=== PATIENT | male | born 1955 | race Caucasian/White ===

== ENCOUNTER 2019-07-18 06:30 | Inpatient (IN) ==
--- NOTE | 2019-05-21 13:00 | PAT Medication Instructions ---
Medication Instructions Date of Service May 21, 2019 Home Medications albuterol sulfate 1 puff INHALATION Q6H PRN amlodipine 10 mg PO QAM apple cider vinegar 500 mg PO QAM aspirin [Aspirin Low Dose] 81 mg PO DAILY atenolol 100 mg PO QAM biotin 10,000 mcg PO QAM cyanocobalamin (vitamin B-12) [Vitamin B-12] 1,000 mcg PO QAM ezetimibe [Zetia] 10 mg PO QAM hydrochlorothiazide 25 mg PO QAM hydroxyzine HCl 75 mg PO HS lorazepam 1 mg PO HS losartan 100 mg PO QAM meclizine 25 mg PO BID PRN metformin 850 mg PO BID potassium 99 mg PO DAILY STOP taking 2 weeks before surgery (or as soon as possible if surgery is within 2 weeks) apple cider vinegar 500 mg PO QAM biotin 10,000 mcg PO QAM DO NOT take the morning of surgery cyanocobalamin (vitamin B-12) [Vitamin B-12] 1,000 mcg PO QAM hydrochlorothiazide 25 mg PO QAM losartan 100 mg PO QAM metformin 850 mg PO BID potassium 99 mg PO DAILY Take morning of surgery With a small sip of water, OTHERWISE NOTHING TO EAT OR DRINK AFTER MIDNIGHT: albuterol sulfate 1 puff INHALATION Q6H PRN (use if needed; please bring with you to hospital day of surgery if possible) amlodipine 10 mg PO QAM aspirin [Aspirin Low Dose] 81 mg PO DAILY atenolol 100 mg PO QAM ezetimibe [Zetia] 10 mg PO QAM meclizine 25 mg PO BID PRN (if needed) Take evening before surgery albuterol sulfate 1 puff INHALATION Q6H PRN (if needed) hydroxyzine HCl 75 mg PO HS lorazepam 1 mg PO HS meclizine 25 mg PO BID PRN (if needed) metformin 850 mg PO BID Other Notes If you have any questions please call us at [phone] or [phone] or [phone] or [phone]
--- NOTE | 2019-05-22 12:45 | Anesthesiology Consultation ---
Date of Service May 22, 2019 Assessment & Plan (1) Encounter for pre-operative examination: - Check BSG AM DOS Chart Review Chart Review: Pending: Refer to Additional Notes / Consult section (pending preop testing (labs, EKG, CXR)) and Patient seen in Pre Admission Testing Teaching & Discussion Pre-Anesthesia Teaching/Discussion Notes: Instructed NPO after midnight before surgery,except medications with 15 cc of water. Medication instructions provided according to the PAT guidelines. History Surgery Operation Date: 07/18/19 10:55 Proposed Procedures p Left Total Knee Arthroplasty - Charles Diaz MD Height/Weight Height: 6 ft Weight: 133.3 kg Allergies Allergy/AdvReac Type Severity Reaction Status Date / Time oxycodone Allergy Unknown hives & sob Verified 05/20/19 10:09 hay fever Allergy Severe eye swell Uncoded 05/20/19 10:09 shut Medications Home Medications Medication Instructions Recorded Confirmed Last Taken albuterol sulfate 1 puff INHALATION Q6H PRN 05/20/19 05/20/19 Unknown amlodipine 10 mg PO QAM 05/20/19 05/20/19 Unknown apple cider vinegar 500 mg PO QAM 05/20/19 05/20/19 Unknown aspirin [Aspirin Low Dose] 81 mg PO DAILY 05/20/19 05/20/19 Unknown atenolol 100 mg PO QAM 05/20/19 05/20/19 Unknown biotin 10,000 mcg PO QAM 05/20/19 05/20/19 Unknown cyanocobalamin (vitamin B-12) 1,000 mcg PO QAM 05/20/19 05/20/19 Unknown [Vitamin B-12] ezetimibe [Zetia] 10 mg PO QAM 05/20/19 05/20/19 Unknown hydrochlorothiazide 25 mg PO QAM 05/20/19 05/20/19 Unknown hydroxyzine HCl 75 mg PO HS 05/20/19 05/20/19 Unknown lorazepam 1 mg PO HS 05/20/19 05/20/19 Unknown losartan 100 mg PO QAM 05/20/19 05/20/19 Unknown meclizine 25 mg PO BID PRN 05/20/19 05/20/19 Unknown metformin 850 mg PO BID 05/20/19 05/20/19 Unknown potassium 99 mg PO DAILY 05/20/19 05/20/19 Unknown meloxicam 15 mg PO DAILY 05/22/19 05/22/19 Unknown Past Medical History Medical History Asthma exercise induced; no recent inhaler Diabetes mellitus, type 2 NIDDM History of tooth extraction Hyperlipidemia Hypertension Obesity Sleep apnea CPAP Exercise / Class Metabolic Activity III < 4 Walking/Shop/Light housework (uses cane/walker PRN) Past Family History Family History Father Family history of diabetes mellitus Mother Family history of diabetes mellitus Sister Family history of diabetes mellitus Past Surgical History Surgical History H/O elbow surgery right 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 Physical Exam Vital Signs VITALS BP 145/78 P 59 TEMP 98.1 SP02 95%RA RESP 18 PHYSICAL Full neck and c-spine range of motion. Full TMJ range of motion. TMD 3 finger breaths Mallampati Score 2 Dentition: full upper plate; several missing lower (does not have partial yet) Lungs: clear throughout to auscultation Cardiac: regular rate and rhythm, no murmurs noted Spine: normal Carotid arteries: negative bruit Extremities: no edema
--- NOTE | 2019-05-22 13:16 | XRay Report ---
XR chest Pre-admission PA/Lat CLINICAL HISTORY: Preoperative chest COMPARISON STUDY: No previous studies for comparison. FINDINGS: The cardiac and mediastinal contours are normal. There is no evidence of focal pulmonary co nsolidation. There is no evidence of failure. No pleural effusions are visualized.[ IMPRESSION: No active disease in the chest. Electronically signed by: Lane Caceres M.D. 05/22/2019 1:15 PM
[2019-05-22 14:56] LABS: Basophils # (auto) 0.04 K/uL (0-0.2); Basophils % (auto) 0.4 %; Eosinophils # (auto) 0.28 K/uL (0-0.5); Eosinophils % (auto) 2.9 %; Hematocrit (blood only) 42.6 % (42-52); Immature Granulocytes # (auto) 0.08 K/uL (0.00-0.02); Immature Granulocytes % (auto) 0.8 %; Lymphocytes % (auto) 26.9 %; Mean Corpuscular Hemoglobin 28.9 pg (25-34); Mean Corpuscular Hgb Conc 32.9 g/dL (32-36); Mean Corpuscular Volume 87.8 fL (80-100); Mean Platelet Volume 10.7 fL (7.4-10.4); Monocytes # (auto) 0.95 K/uL (0.11-0.59); Monocytes % (auto) 9.8 %; Neutrophils # (auto) 5.71 K/uL (1.4-6.5); Neutrophils % (auto) 59.2 %; Platelet Count 327 K/uL (130-400); RDW Coefficient of Variation 13.9 % (11.5-14.5); RDW Standard Deviation 44.6 fL (36.4-46.3); Red Blood Count 4.85 M/uL (4.7-6.1); White Blood Count 9.66 K/uL (4.8-10.8)
[2019-05-22 15:10] LABS: Partial Thromboplastin Ratio 1.1; Partial Thromboplastin Time 28.9 Seconds (21.0-31.0); Prothrombin Time 10.3 Seconds (9.0-12.0)
[2019-05-22 15:20] LABS: BUN Creatinine Ratio 14.7 (10-20); Calcium 9.2 mg/dl (8.5-10.1); Creatinine Clr Calc Pharmacy 94.5 ml/min; Est GFR (African American) 79.7; Est GFR (Non-African American) 68.8; Potassium 4.4 mmol/L (3.5-5.1)
[2019-05-23 05:46] LABS: Estimated Average Glucose 137 mg/dl; Hemoglobin A1C 6.4 % (4.5-5.6)
--- NOTE | 2019-07-11 13:27 | History and Physical Report ---
DATE OF ADMISSION: 07/18/2019 CHIEF COMPLAINT: Left knee pain, discomfort, catching and locking and instability. HISTORY OF PRESENT ILLNESS: This is a 64-year-old gentleman who presents on referral from my partner Dr. Chaudhari for surgical treatment of his left knee. He has got a long history of left knee pain and discomfort, describes it has gotten worse over time. He has got pain in both knees, but the left side a bit worse than the right. He describes catching and locking to the point where it gives way intermittently. He gets acute episodes of pain. He has had injections which provided some temporary relief only. He uses a cane to get around as a result. He has got global pain. He has nighttime discomfort. He would like to have his left knee fixed. PAST MEDICAL HISTORY: Significant for: 1. Hypertension. 2. Sleep apnea with CPAP machine. 3. Diabetes. 4. Arthritis. 5. Low back pain/sciatica. PAST SURGICAL HISTORY: 1. Right elbow surgery. 2. Plantar fascia surgery. ALLERGIES: HAY FEVER. CURRENT MEDICINES: Include: 1. Metformin. 2. Amlodipine. 3. Atenolol. 4. Losartan. 5. Lorazepam. 6. Adderall. 7. Potassium. 8. Biotin. 9. Apple cider vinegar. 10. B12. 11. Aspirin. SOCIAL HISTORY: A 64-year-old male. He is . Lives in [place]. No significant smoking or alcohol intake. FAMILY HISTORY: Noncontributory. REVIEW OF SYSTEMS: Negative for DVT or PE. He is diabetic. He states his blood glucose under good control. No chest pain or shortness of breath. No DVT. No bleeding problems. PHYSICAL EXAMINATION: GENERAL: Shows a fairly large middle-aged male. Looks to be in reasonably good health. HEENT: Benign. NECK: Supple, no lymphadenopathy. LUNGS: Clear to auscultation. HEART: Regular rate and rhythm. ABDOMEN: Soft, nontender, nondistended. EXTREMITIES: Grossly neurovascularly intact except as follows. Examination of left knee reveals patient walks with use of a cane. He has got slight varus alignment to his knee. He has got small knee effusion. Range of motion is about 5-125. He has no pain with hip motion. He is neurologically intact. X-RAYS: X-rays of the left knee reviewed. Shows advanced left knee tricompartment DJD. He has got essentially complete loss of his medial joint space. He has got a small loose body posteriorly and 1 in the intercondylar notch area as well. Subchondral sclerosis. ASSESSMENT: A 64-year-old male with left knee degenerative joint disease and several loose bodies in his knee. He has failed conservative treatment and would like to have his left knee replaced. PLAN: We are going to take him to the operating room and do a left total knee replacement. The risks and benefits of this procedure were explained to the patient including but not limited to DVT, PE, , infection, neurological injury, vascular injury, bleeding problem, pain, limited range of motion, stiffness, failure to relieve symptoms, incomplete relief of symptoms, need for further surgery in future, etc. The patient understands and desires to proceed. We did talk to him about holding his metformin in the morning of surgery and taking atenolol. He will bring his CPAP machine to the hospital. He is planning to be discharged to home. His daughter is a physical therapist and is going to work with him therapy adams.
[~2019-07-18 06:30] MED LIST: ACETAMINOPHEN 500 MG TAB PO SCH; BUPIVACAINE LIPOSOME/PF 266 MG, BUPIVACAINE/EPINEPHRINE 50 ML, SODIUM CHLORIDE 0.9% 30 ... INFIL SCH; CEFAZOLIN 3000MG 72.5 ML IV SCH; FAMOTIDINE 20 MG TAB PO SCH; GABAPENTIN 600 MG DOSE PO SCH; LR 500ML BOLUS, THEN 15ML/HR IV SCH; LR 60ML/HR IV SCH; METOCLOPRAMIDE HCL 10 MG TABLET PO SCH; SCOPOLAMINE 1.5 MG TDSY TD SCH; TRANEXAMIC ACID 1,000 MG **IV Intra-op IV SCH
[2019-07-18] MEDS ORDERED: ROPIVACAINE 0.5% 5 MG/ML 30 ML VIAL ONE (06:31)
[2019-07-18] MEDS ORDERED: BUPIVACAINE 0.5 % 5 MG/1 ML PF 10ML VIAL ONE (06:31)
--- NOTE | 2019-07-18 06:57 | History & Physical Bridge Note ---
Date of Service July 18, 2019 History & Physical Bridge Note I have examined the patient, reviewed the History & Physical and in the interval since the performance of the History & Physical I have noted the following changes of clinical significance: Patient with BILATERAL knee DJD. Will do Left TKR and inject right knee under anesthesia at patient's request.
[2019-07-18] MEDS ORDERED: MIDAZOLAM HCL 1 MG/ML 2ML VIAL ONE (10:55)
[2019-07-18] MEDS ORDERED: fentaNYL citrate 100 MCG/2 ML VIAL ONE (10:57)
[2019-07-18] MEDS ORDERED: KETOROLAC 30 MG/ML VIAL IV PRN (11:20)
[2019-07-18] MEDS ORDERED: HYDROmorphone INJ 1 MG/ML SYRINGE IV PRN (11:20)
[2019-07-18] MEDS ORDERED: ONDANSETRON INJ 2 MG/ML 2 ML VIAL IV PRN ×2 (11:20→14:55)
[2019-07-18] MEDS ORDERED: ePHEDrine sulfate 50 MG/ML AMP IV PRN (11:20)
[2019-07-18] MEDS ORDERED: ATROPINE SULFATE 0.1 MG/ML 10ML SYR IV PRN (11:20)
[2019-07-18] MEDS ORDERED: ONDANSETRON INJ 2 MG/ML 2 ML VIAL ONE (11:39)
[2019-07-18] MEDS ORDERED: LIDOCAINE HCL 2% 2 ML VIAL/AMP(20MG/ML) INFIL ONE (11:39)
[2019-07-18] MEDS ORDERED: PROPOFOL IV EMULSION 10 MG/ML 20 ML VIAL IV ONE (11:39)
[2019-07-18] MEDS ORDERED: SODIUM CHLORIDE 0.9% PF 50 ML VIAL ONE (11:41)
[2019-07-18] MEDS ORDERED: BUPIVACAINE/EPINEPHRINE 0.25% 1:200,000 30 ML VIAL ONE (11:41)
[2019-07-18] MEDS ORDERED: BUPIVACAINE 0.5 % 5 MG/1 ML MPF 30ML VIAL ONE (11:42)
[2019-07-18] MEDS ORDERED: BUPIVACAINE LIPOSOME 1.3% 266 MG/20 ML VIAL ONE (11:42)
[2019-07-18] MEDS ORDERED: BACITRACIN INJ 50,000 UNIT VIAL ONE (11:42)
[2019-07-18] MEDS ORDERED: BETAMETH SOD PHOS/ACETATE IA 6 MG/ML IA ONE (12:00)
--- NOTE | 2019-07-18 13:57 | Post Operative Brief Note ---
PG Immediate Post Op with CF Date of Surgery July 18, 2019 Pre & Post Diagnosis Operation Date: 07/18/19 08:50 Pre-Op Diagnosis: Bilateral Knee Degenerative Joint Disease Post-Op Diagnosis: Bilateral Knee Degenerative Joint Disease I identified the patient and participated in the time-out.: Yes Procedure Operation Date: 07/18/19 08:50 Actual Procedures p Left Total Knee Arthroplasty, Right Knee Injection(Left) - Charles Diaz MD Surgeon Charles Diaz MD Senior Product Development Engineer Jorge, PAC Estimated Blood Loss 50 Findings Consistent with Post-Op Diagnosis Fluids 1800 cc Specimens Specimen Description: Permanent Specimens: A) Left Knee Bone and Tissue Drains Choi Catheter Anesthesia Type Spinal MAC Complications none Disposition Accompanied Patient To Recovery: No Disposition: Recovery Room
--- NOTE | 2019-07-18 14:14 | Operative Report ---
Post Operative Report Pre & Post Diagnosis Operation Date: 07/18/19 08:50 Pre-Op Diagnosis: Bilateral Knee Degenerative Joint Disease Post-Op Diagnosis: Bilateral Knee Degenerative Joint Disease I identified the patient and participated in the time-out.: Yes Procedure Operation Date: 07/18/19 08:50 Actual Procedures p Left Total Knee Arthroplasty, Right Knee Injection(Left) - Cahrles Diaz MD Surgeon Charles Diaz MD Post Partum Nurse Jorge, PAC Estimated Blood Loss 50 Findings Consistent with Post-Op Diagnosis Operative findings revealed advanced left knee DJD with grade 4 [id number] disease of the medial and patellofemoral compartments. He had a varus deformity to his knee with osteophytes in the medial compartment. Moderate sized joint effusion. Fluids 1800 cc Specimens Left knee sent for pathology. Drains None. Anesthesia Type Spinal MAC Complications none Disposition Accompanied Patient To Recovery: No Disposition: Recovery Room Indications Patient is a 64-year-old gentleman with a long history of bilateral knee pain and discomfort the describes gotten worse over time please been followed by my partner Dr. Chaudhari. He failed conservative care. X-rays reveal advanced medial compartment arthritis. Elected to proceed with a left total knee arthroplasty. He has known arthritis in his right knee as well and elected to proceed with a right knee injection while under anesthesia. Description of Procedure Operative implants consisted of: 1. A Biomet Vanguard size 70 left posterior bifemoral component. 2. Biomet Vanguard size 75 tibial tray. 3. 10 mm posterior stabilized polyethylene insert. 4. 31 x 8 all poly-patella. Patient taken to the operating identified and placed on the operating room table in the supine position. All contact areas were appropriately padded. IV antibiotics were provided by anesthesia team. Spinal anesthetic and abductor canal block is provided in the holding area. Choi catheter was placed in a sterile fashion with left thigh tourniquet was then placed in the left lower extremity was then prepped and draped in usual sterile fashion. The left leg was elevated and exsanguinated with use of an Esmarch interspace at 3 mmHg. An anterior approach to the left knee was then performed the longitudinal incision centered over the patella. Sharp passes cut through subcutaneous tissue down to the extensor mechanism. A medial parapatellar arthrotomy incision was made. Some subperiosteal dissection was carried out medially. The fat pad was resected from beneath patella tendon. Lateral patellofemoral ligament was released. Patella was subluxated laterally and the knee was flexed. The osteophytes taken off the distal femur. The ACL and PCL were then released from the distal femur the tibia subluxated anteriorly. The external tibial alignment jig was then placed in the interface the tibia and adjusted 14 mm medially. Proximal tibial cut was made to remove about a millimeter bone from the most efficient aspect and posterior medial tibial plateau. The tibia was sized to size 75. Attention drawn the femur. New per the disc femur there was a sharp drill. Intramedullary canal was suction. A left 6 degree valgus cutting guide was placed but this femoral cutting block was pinned in place but this femoral cut was made to take an additional 3 mm of bone off the distal femur. Femur was then sized to a size 70. We downsized this slightly. The AP cutting block was pinned parallel to the epicondylar axis which was 4 degrees of external rotation. The anterior cut, anterior chamfer, posterior cut, posterior chamfer cuts were made. Box cutting guide was placed and just slightly lateral and the box cut was made. The knee was flexed with the remnants of the medial lateral menisci were excised. The osteophytes taken off the posterior aspect of the femur. Trial femoral component was placed. The tibial tray was pinned in maximum external rotation and drill and stem punch were used to create defect in the proximal tip for the tibial tray. Knee was then trialed and the 10 mm insert fit most appropriately. Attention drawn the patella. Patella was cleaned of all soft tissues. Patella thickness measured 23 mm in thickness was cut down to 14. Size a size 31 patella. Locals were drilled for 31 patella. The lateral osteophyte was removed. Patella button was placed. Knee was taken through range of motion patella tracked nicely with no thumbs test. Attention was then drawn to place the permanent components. All trial implants were removed. Bone plug was placed in the disc femur limit blood loss put a double batch of Palacos G cement was mixed. Biomet Vanguard size 70 left posterior bifemoral component, size 75 tibial tray, 10 mm posterior bite polyethylene insert, and a 31 x 8 all poly-patella then cement placed. Knee was brought out into full extension until cement hardened. Final cement check was then performed. The pericapsular tissues were injected with total of 100 cc of combination of 20 cc of Exparel, 30 cc normal saline, 50 cc of quarter percent Marcaine with epinephrine. Patient did receive 1 g of tranexamic acid. The tourniquet was then let down for final tourniquet time 65 minutes. Hemostasis should use electrocautery. Wounds once again irrigated. Extensor macros then closed with combination 1 PDS suture #1 Vicryl suture in [id number] fashion for extensor mechanism checked found to be intact the subtenons tissue then closed with 2 Dexon suture in a buried knot fashion skin was closed skin mora. Leg was then cleaned dried a sterile dressing was Xeroform for 4 sterile cast padding Romulo bandage were applied. Patient tolerated procedure well and no complications. The right knee was then prepped with alcohol. 2 cc Celestone and 8 cc Marcaine were injected in the right knee in a sterile fashion. A box of 4 x 4's was then placed over the incision site and the GALE stockings were placed to secure the bandage. I attest to the content of the Intraoperative Record and any orders documented therein. Any exceptions are noted below.
--- NOTE | 2019-07-18 14:26 | Anesthesiology Progress Note ---
Date of Service July 18, 2019 Anesthesia Post Procedure Vital Signs Vital Signs: Temp Pulse Pulse Resp BP BP Pulse Ox 07/18/19 14:20 58 L 16 135/61 96 07/18/19 14:10 69 16 127/61 94 07/18/19 14:01 37.3 C 66 16 126/63 97 07/18/19 07:02 36.8 C 61 18 122/73 95 Pain Intensity Left Knee: Pain Intensity: 1 Transfer of Care Handoff Completed per policy Notes Mental Status: alert / awake / arousable Patient Amnestic to Procedure: Yes Nausea / Vomiting: adequately controlled Pain: adequately controlled Airway Patency, RR, SpO2: stable & adequate BP & HR: stable & adequate Hydration State: stable & adequate Anesthetic Complications: no major complications apparent
--- NOTE | 2019-07-18 14:39 | XRay Report ---
XR knee LT 1 or 2V routine CLINICAL HISTORY: Surgical Post Op COMPARISON: None. DISCUSSION: Anatomic alignment posttotal left knee arthroplasty. Could contact between prosthetic and underlying bone. Expected postoperative soft tissue change IMPRESSION: Anatomic alignment posttotal left knee arthroplasty. The above report was generated using voice recognition software. It may contain grammatical, syntax or spelling errors. Electronically signed by: Shashank Johnson M.D. 07/18/2019 2:38 PM
[2019-07-18] MEDS ORDERED: CARBOHYDRATES FOR HYPOGLYCEMIA PO PRN (14:55)
[2019-07-18] MEDS ORDERED: GLUCOSE 40% GEL 15 GM TUBE PO PRN (14:55)
[2019-07-18] MEDS ORDERED: SODIUM CHLORIDE 0.9% 1000ML 1,000 ML IV SCH (14:55)
[2019-07-18] MEDS ORDERED: DEXTROSE 50% 50 ML SYRINGE IV PRN (14:55)
[2019-07-18] MEDS ORDERED: NALOXONE HCL 0.4 MG/1 ML VIAL/CARP IV PRN (14:55)
[2019-07-18] MEDS ORDERED: TAMSULOSIN HCL 0.4 MG CAP PO PRN (14:55)
[2019-07-18] MEDS ORDERED: GLUCAGON FOR INJ 1 MG VIAL SQ PRN (14:55)
[2019-07-18] MEDS ORDERED: HYDROmorphone INJ 0.5 MG/0.5 ML SYR IV PRN (14:55)
[2019-07-18] MEDS ORDERED: bisacodyL 10 MG SUPP PR PRN (14:55)
[2019-07-18] MEDS ORDERED: ALBUTEROL HFA 8 GM INHALER INH PRN (14:55)
[2019-07-18] MEDS ORDERED: ALUMINUM/MAGNESIUM SUSP 30 ML UDC PO PRN (14:55)
[2019-07-18] MEDS ORDERED: METOCLOPRAMIDE HCL INJ 5 MG/ML 2 ML VIAL IV PRN (14:55)
[2019-07-18] MEDS ORDERED: MAGNESIUM HYDROXIDE SUSP 30 ML UDC PO PRN (14:55)
[2019-07-18] MEDS ORDERED: GLUCOSE 10 TABS/TUBE PO PRN (14:55)
[2019-07-18] MEDS ORDERED: PHARMACY GLYCEMIC MGMT CONSULT PRN (15:16)
[2019-07-18] MEDS ORDERED: MECLIZINE HCL 25 MG TAB PO PRN (15:59)
--- NOTE | 2019-07-18 16:03 | Pharmacy Report ---
Glycemic Control Consultation - Date of Service July 18, 2019 - Scope Scope: Glycemic Pharmacist consulted by Dr Diaz on 07/18/19 for glycemic control and to write orders per [facility] inpatient glycemic control protocol - Objective Weight: 136.1 kg Accuchecks BSG (last 24hrs): 07/18/19 07/18/19 06:53 14:07 POC Glucose 125 H 106 H HbA1c: Hemoglobin A1c 6.4 % (4.5-5.6) H 05/22/19 12:55 - Recent Pertinent Medications Outpatient Anti-diabetic Regimen: * Metformin * A1c = 6.4 % 05/22/19 - Assessment & Plan Assessment & Plan: ASSESSMENT: * Pt is a 64yo M type II diabetic. POD: 0 for L TKA. He is maintained on metformin 850mg BID as an outpt. His A1C of 6.4% is indicative of excellent outpt management. PMHx consistent with HTN, LULA, OA, obesity. PLAN FOR INPATIENT GLYCEMIC CONTROL: * Holding outpatient oral diabetes medications * Basal insulin * Lantus scale X1 @ HS * BSGs <180 hold lantus * BSGs >/=180 give 20 units * Bolus insulin * NovoLog per scale ACHS or Q6hrs while NPO * Goal Range: Low 110 mg/dL - High 140 mg/dL * Correction Factor: 15 mg/dL/unit * Nutritional / Prandial insulin per carb ratio of 1 unit per 6 grams CHO consumed * Please note that the plan above was derived based on current level of insulin resistance and hospital stress. These recommendations are appropriate for inpatient admission only. Plan of care upon discharge will need to be reassessed to avoid potential outpatient hypo/hyperglycemia. Thank you.
[2019-07-18] MEDS: ACETAMINOPHEN 500 MG TAB PO SCH ×2 (16:39→22:12)
[2019-07-18] MEDS: KETOROLAC TROMETHAMINE 15 MG/ML VIAL IV SCH ×2 (16:39→20:45)
[2019-07-18] MEDS: CHECK SCOPOLAMINE PATCH PLACEMENT SCH ×2 (16:39→23:49)
--- NOTE | 2019-07-18 17:06 | Progress Note ---
DATE: 07/18/2019 SUBJECTIVE: A 64-year-old male diabetic, postop from a left knee replacement and a right knee injection. He is doing pretty well. Minimal pain. Just getting the feeling back in his legs. No chest pain or shortness of breath. Not feeling dizzy. He says he feels great. OBJECTIVE: VITAL SIGNS: Temperature 36.5. Vital signs stable. GENERAL: Pleasant elderly male. He is sitting up in bed and talking to his family. LUNGS: Clear to auscultation. HEART: Regular rate and rhythm. ABDOMEN: Soft, nontender, nondistended. EXTREMITIES: Grossly neurovascularly intact except as follows. Examination of the left lower extremity reveals the leg to be well aligned. Dressing is clean, dry and intact. He is just starting to be able to move his toes. He has got brisk refill. Sensation is just returning. X-RAYS: X-rays of the left knee from Recovery Room reviewed. It is fairly poor quality film as it is fairly rotated the AP. It shows a cemented posterior stabilized total knee arthroplasty. Components looked to be in good position. No signs of problems. ASSESSMENT: A 64-year-old male, diabetic, postop from a left knee replacement, doing well. Pain is pretty well controlled. His spinal has not worn off yet. His nerve function is returning. PLAN: 1. DVT prophylaxis including thigh-high TEDs, SCDs, and aspirin twice a day. 2. PT/OT. Weight bear as tolerated. Left total knee protocol. 3. Pain control, doing pretty well with current pain regimen. HIS ALLERGY TO OXYCODONE IS NOT A TRUE ALLERGY, BUT A SIDE AFFECT IN HIS ITCHING. We will try him on Dilaudid and see how he does on that. We will use Tylenol around the clock and he can go back on any NSAIDs. 4. IV antibiotics x24 hours. 5. Disposition: He is hoping to be discharged to home. His daughter is a therapist and he is going to use her for therapy I believe. HELEN
[2019-07-18] MEDS: INSULIN ASPART 100 UNITS/ML 3 ML PEN SC SCH ×2 (18:05→20:44)
[2019-07-18] MEDS: ASCORBIC ACID 500 MG TAB PO SCH (18:06)
[2019-07-18] MEDS: FERROUS GLUCONATE 324 MG TAB PO SCH (18:06)
[2019-07-18] MEDS: HYDROmorphone HCL 2 MG TAB PO PRN ×2 (19:41→23:44)
[2019-07-18] MEDS ORDERED: TRANEXAMIC ACID / 0.7% NACL 1,000 MG/100 ML BAG IV SCH (20:01)
[2019-07-18] MEDS: CEFAZOLIN 2000MG 2,000 MG/15 ML SYR IV SCH (20:44)
[2019-07-18] MEDS: DOCUSATE SODIUM 100 MG CAP PO SCH (20:45)
[2019-07-18] MEDS: ASPIRIN 81 MG ECTAB PO SCH (20:45)
[2019-07-18] MEDS: TAPENTADOL HCL ER 50 MG TABCR PO SCH (20:48)
[2019-07-18] MEDS ORDERED: INSULIN GLARGINE SOLOSTAR 100 UNITS/ML 3 ML PEN SC ONE (21:00)
[2019-07-18] MEDS ORDERED: LORazepam 1 MG TAB PO SCH (21:00)
[2019-07-18] MEDS ORDERED: SENNA 8.6 MG TAB PO SCH (21:00)
[2019-07-18] MEDS ORDERED: Nursing to Pharmacy Communication ONE (21:10)
[2019-07-19] MEDS: HYDROmorphone HCL 2 MG TAB PO PRN ×2 (03:56→09:26)
[2019-07-19] MEDS: CEFAZOLIN 2000MG 2,000 MG/15 ML SYR IV SCH (05:04)
[2019-07-19] MEDS: ACETAMINOPHEN 500 MG TAB PO SCH (05:04)
[2019-07-19] MEDS: KETOROLAC TROMETHAMINE 15 MG/ML VIAL IV SCH (05:04)
[2019-07-19 06:34] LABS: Hematocrit (blood only) 36.9 % (42-52); Hemoglobin 12.4 g/dL (14.0-18.0); Mean Corpuscular Hemoglobin 29.5 pg (25-34); Mean Corpuscular Hgb Conc 33.6 g/dL (32-36); Mean Corpuscular Volume 87.6 fL (80-100); Mean Platelet Volume 10.2 fL (7.4-10.4); Platelet Count 259 K/uL (130-400); RDW Coefficient of Variation 13.3 % (11.5-14.5); RDW Standard Deviation 42.6 fL (36.4-46.3); Red Blood Count 4.21 M/uL (4.7-6.1); White Blood Count 19.18 K/uL (4.8-10.8)
[2019-07-19 07:15] LABS: BUN Creatinine Ratio 12.6 (10-20); Calcium 8.5 mg/dl (8.5-10.1); Creatinine Clr Calc Pharmacy 81.8 ml/min; Est GFR (African American) 66.1; Potassium 4.1 mmol/L (3.5-5.1)
--- NOTE | 2019-07-19 08:33 | Orthopedic Progress Note ---
Date of Service July 19, 2019 Assessment & Plan (1) History of left knee replacement: Overall he is doing very well. Is not having much pain in the left knee. He will be seen by physical therapy today for ambulation and range of motion exercises. He is on aspirin for DVT prophylaxis. He can be discharged home later today. He will follow-up with orthopedics in 2 weeks. Present on Admission?: Yes Subjective Rony was seen and examined at bedside this morning. Overall is doing very well. He is really not having any pain in his left knee. He is already been up and ambulating around the nurses station. He has no complaints. Physical Exam Musculoskeletal: On physical examination of the left knee, the dressing is clean and dry. His leg is out in full extension. He has active dorsiflexion and plantarflexion of his left ankle. Results & Data Vital Signs (Past 12 Hours) Vital Signs Temp Pulse Resp BP Pulse Ox 07/19/19 07:35 36.9 C 69 18 144/70 H 94 07/19/19 03:46 36.8 C 68 18 135/69 92 07/18/19 23:43 36.8 C 72 18 181/72 H 94 07/18/19 23:41 159/65 H Laboratory Results H & H 05/22/19 07/19/19 Range/Units 12:55 06:12 Hgb 14.0 12.4 L (14.0-18.0) g/dL Hct 42.6 36.9 L (42-52) % Coagulation 05/22/19 Range/Units 12:55 INR 1.0 (0.9-1.1) PG Care Time/CCT Total # of Minutes Spent Total Time Spent with Patient: Total time spent is greater than 50% in coordination of care (as documented) at patient's floor/unit and/or counseling patient:
[2019-07-19] MEDS ORDERED: EZETIMIBE 10 MG TABLET PO SCH (09:00)
[2019-07-19] MEDS ORDERED: ATENOLOL 50 MG TABLET PO SCH (09:00)
[2019-07-19] MEDS ORDERED: MULTIVITAMIN TAB PO SCH (09:00)
[2019-07-19] MEDS ORDERED: CYANOCOBALAMIN 500 MCG TABLET (VITAMIN B-12) PO SCH (09:00)
[2019-07-19] MEDS ORDERED: NON-FORMULARY MEDICATION (Potassium 99 MG) PO SCH (09:00)
[2019-07-19] MEDS ORDERED: LOSARTAN POTASSIUM 50 MG TAB PO SCH (09:00)
[2019-07-19] MEDS ORDERED: NON-FORMULARY MEDICATION (Biotin 10,000 MCG) PO SCH (09:00)
[2019-07-19] MEDS ORDERED: APPLE CIDER VINEGAR PO SCH (09:00)
[2019-07-19] MEDS ORDERED: hydroCHLOROthiazide 25 MG TAB PO SCH (09:00)
[2019-07-19] MEDS ORDERED: AMLODIPINE BESYLATE 5 MG TAB PO SCH (09:00)
[2019-07-19] MEDS: DOCUSATE SODIUM 100 MG CAP PO SCH (09:17)
[2019-07-19] MEDS: FERROUS GLUCONATE 324 MG TAB PO SCH (09:17)
[2019-07-19] MEDS: ASCORBIC ACID 500 MG TAB PO SCH (09:17)
[2019-07-19] MEDS: ASPIRIN 81 MG ECTAB PO SCH (09:17)
[2019-07-19] MEDS: INSULIN ASPART 100 UNITS/ML 3 ML PEN SC SCH (09:22)
[2019-07-19] MEDS: TAPENTADOL HCL ER 50 MG TABCR PO SCH (09:26)
--- NOTE | 2019-07-19 10:13 | Anesthesiology Progress Note ---
Date of Service July 19, 2019 Anesthesia Post Procedure Vital Signs Vital Signs: Temp Pulse Pulse Resp BP BP Pulse Ox 07/19/19 09:29 36.9 C 69 18 144/70 H 122/73 94 07/19/19 07:35 36.9 C 69 18 144/70 H 94 07/19/19 03:46 36.8 C 68 18 135/69 92 07/18/19 23:43 36.8 C 72 18 181/72 H 94 07/18/19 23:41 159/65 H 07/18/19 19:38 36.6 C 72 15 167/73 H 95 07/18/19 17:33 36.9 C 65 17 157/74 H 94 07/18/19 16:41 36.4 C L 67 15 164/73 H 96 07/18/19 15:46 55 L 17 148/76 H 97 07/18/19 15:18 36.5 C 55 L 17 138/67 96 07/18/19 14:45 36.6 C 52 L 15 129/76 97 07/18/19 14:30 37.1 C 59 L 16 118/81 97 07/18/19 14:20 58 L 16 135/61 96 07/18/19 14:10 69 16 127/61 94 07/18/19 14:01 37.3 C 66 16 126/63 97 Pain Intensity Left Knee: Pain Intensity: 3 Notes Mental Status: alert / awake / arousable Nausea / Vomiting: adequately controlled Pain: adequately controlled Airway Patency, RR, SpO2: stable & adequate BP & HR: stable & adequate Hydration State: stable & adequate Neuraxial Anesthesia: was administered and sensory block resolved Anesthetic Complications: no major complications apparent and Pt Satisfied with anesthetic care
== END 2019-07-19 10:55 | disposition home or self-care (01) | DRG 470 ==
LOC: ASU 06:30 → 3E 14:04